=== PATIENT | female | born 1955 | race Caucasian/White ===

== ENCOUNTER 2024-03-14 14:40 | Emergency (ER) | payer OTHER, SELFPAY ==
[2024-03-14 14:48] VITALS: BP 168/79
[2024-03-14 15:05] LABS: % Basophils 0.8 % (0-2); % Eosinophils 0.8 % (0-6); % Immature Granulocytes 0.5 % (0-0.5); % Lymphocytes 14.2 % (20.5-51.1); % Monocytes 6.8 % (1.7-9.3); % Neutrophils 76.9 % (42.2-75.2); Absolute Basophils 0.1 10^3/uL (0-0.2); Absolute Eosinophils 0.1 10^3/uL (0-0.7); Absolute Lymphocytes 1.2 10^3/uL (1.2-3.4); Absolute Monocytes 0.6 10^3/uL (0.1-0.6); Absolute Neutrophils 6.7 10^3/uL (1.4-6.5); Hematocrit 36.2 % (37.0-47.0); Hemoglobin 12.4 g/dL (12.0-16.0); Mean Corp Hgb Conc. 34.3 g/dL (33.0-37.0); Mean Corpuscular Hgb 32.9 pg (27.0-31.0); Mean Platelet Volume 9.2 fL (7.4-10.4); Nucleated Red Blood Cells % 0 %; Platelet Count 264 10^3/uL (130-400); Red Blood Cell Count 3.77 10^6/uL (4.20-5.40); Red Cell Dist. Width 12.1 % (11.5-14.5); White Blood Cell Count 8.7 10^3/uL (4.8-10.8)
[2024-03-14 15:29] LABS: Troponin I < 0.012 ng/ml
[2024-03-14 15:43] LABS: ALT (SGPT) 36 U/L (0-35); AST (SGOT) 28 U/L (14-36); Albumin 4.6 g/dl (3.5-5.0); Alkaline Phosphatase 49 U/L (38-126); Blood Urea Nitrogen 25 mg/dl (7-17); Calcium 9.6 mg/dl (8.4-10.2); Carbon Dioxide 27 mmol/L (22-30); Chloride 98 mmol/L (98-107); Glucose 210 mg/dl (70-99); Potassium 4.5 mmol/L (3.5-5.1); Sodium 135 mmol/L (135-145); Total Bilirubin 0.2 mg/dl (0.2-1.3); Total Protein 6.8 g/dl (6.3-8.2); eGFR 40.22
[2024-03-14 15:48] LABS: TSH Reflex To Free T4 4.35 uIU/ml (0.47-4.68)
[2024-03-14 20:06] VITALS: BP 148/72
--- NOTE | 2024-03-14 20:21 | ED.GENMED ---
History of Present Illness
General
Chief Complaint: Heart Rate Problem
Time Seen by Provider: 03/14/24 19:36
History of Present Illness
History of Present Illness:
69-year-old female with prior history of a flutter presenting for palpitations. Patient notes in the past few days she has been noticing that her heart rate has been elevated on her watch, and has been feeling some palpitations. She has noticed
that her heart rate has been going up and down. Does report that she has had a chest cold, which is overall improving. Denies any chest pain. Denies any difficulty breathing. She is currently on diltiazem, previously had an ablation for flutter.
Denies dizziness or weakness. Denies fever. Denies additional acute medical complaints
Past History
Past History
ED Past Medical History: None
ED Past Surgical History: None
Social History
Tobacco: Non-smoker
Alcohol: Other
Living: with family
Phy Exam
Physical Exam
Physical Exam:
General: Well-appearing, no clinical signs of dehydration, nontoxic and in no acute distress
HEENT: protecting airway
Neck: appears supple
CV: Normal heart rate, regular rhythm
Resp: No accessory muscle use, no increased work of breathing, lungs clear to auscultation bilaterally
Abd: No distention
Extremities: No deformities, no swelling
Neuro: alert, no focal neurologic deficit
: deferred
Rectal: deferred
Psych: Normal affect
Skin: Intact
Course
Orders/Labs/Results
Orders:
Orders
03/14/24 14:41
Electrocardiogram (*1) Urgent
Reason for Study: Palpitations
EKG- Treatment ONCE
03/14/24 14:55
Complete Blood Count/With Diff Urgent
Comprehensive Metabolic Panel Urgent
TSH Reflex To Free T4 Urgent
Troponin I Urgent
03/14/24 20:06
Electrocardiogram (*1) Urgent
Reason for Study: Palpitations
EKG- Treatment ONCE
Abnormal Lab Results
03/14/24
14:55
RBC 3.77 L 10^6/uL
(4.20-5.40)
Hct 36.2 L %
(37.0-47.0)
MCH 32.9 H pg
(27.0-31.0)
Absolute Neuts (auto) 6.7 H 10^3/uL
(1.4-6.5)
Neutrophils % 76.9 H %
(42.2-75.2)
Lymphocytes % 14.2 L %
(20.5-51.1)
BUN 25 H mg/dl
(7-17)
Creatinine 1.4 H mg/dL
(0.6-1.0)
Glucose 210 H mg/dl
(70-99)
ALT 36 H U/L
(0-35)
03/14/24 14:55
03/14/24 14:55
Vital Signs
Initial and Last Documented VS:
Initial Vital Signs
Temp Pulse Resp BP Pulse Ox
97.9 F 91 16 168/79 99
03/14/24 14:48 03/14/24 14:48 03/14/24 14:48 03/14/24 14:48 03/14/24 14:48
Last Documented Vital Signs
Temp Pulse Resp BP Pulse Ox
97.9 F 85 16 148/72 97
03/14/24 14:48 03/14/24 20:45 03/14/24 20:45 03/14/24 20:06 03/14/24 20:45
MDM/Problems Addressed
MDM/Problems Addressed:
69-year-old female with prior history of a flutter status post ablation presenting for palpitations. Vital signs are normal
On exam patient is well-appearing, no acute distress or discomfort. EKG obtained on arrival, sinus rhythm with PACs. Patient is not currently in A-fib or a flutter. Suspect the patient may be feeling PACs versus going in and out of A-fib at home.
Patient had screening laboratory analysis prior to my assessment, unremarkable. She is currently asymptomatic. No present concern for ACS. No dyspnea or concern for PE. Will repeat EKG and ambulate
20:45 - Repeat EKG again sinus rhythm. Patient ambulated without any significant tachycardia. At this time feel that she is stable for discharge with outpatient follow-up with her quality control head for potential Holter monitoring. Return precautions
discussed and patient verbalized understanding
*EKG
Interpreted by ED Provider?: Yes
EKG Intrepretation Date: 03/14/24
EKG Intrepretation Time: 20:22
Interpretation: normal
Comparison EKG: no changes
Heart Rate: 97
Rate: normal
Rhythm: sinus and PAC's
[place]: normal axis
Interval: normal interval
QRS Pattern: right bundle branch block
Ischemia: no ischemia
*Critical Care Note
Total Time (30-74mins, 75-104mins- exclusive of procedures): Not Applicable
ED Attending Note
-
Portions of this chart may have been created with voice recognition software.� Occasional wrong word or��sound alike� substitutions may have occurred due to the inherent limitations of voice recognition software.
Discharge Plan
Departure
Patient Disposition: Home (Routine Discharge)
Date of Disposition: 03/14/24
Time of Disposition: 20:47
Patient with high blood pressure during this ER visit?: No
Condition: Good
Discharge Problem:
Heart palpitations
Instructions: Palpitations (DC)
Prescriptions:
No Action
atorvastatin 20 MG tablet
20 mg PO DAILY
spironolactone 25 MG tablet
25 mg PO DAILY
levothyroxine 88 MCG tablet
44 mcg PO SANDY
Patient Comments:
PT TAKES HS
levothyroxine 88 MCG tablet
88 mcg PO MOTUWETHFRSA
Patient Comments:
PT TAKES HS
cranberry 400 MG capsule
400 mg PO DAILY
magnesium 250 MG tablet
250 mg PO DAILY
albuterol sulfate 1 PUFF HFA aerosol inhaler
2 puff inhalation R [id number] PRN (Reason: sob)
multivitamin with folic acid [Tab-A-Vicky] 1 TABLET tablet
1 tab PO DAILY
apixaban [Eliquis] 5 MG tablet
5 mg PO BID Qty: 60 0RF
diltiazem HCl [Cardizem] 120 MG tablet
120 mg PO DAILY Qty: 30 0RF
Activity Restrictions/Additional Instructions:
You were seen in the emergency department for palpitations
You were found to have a normal heart rate and EKG. Please follow-up with your quality control head
Please follow-up closely with your primary care physician.
Return to the emergency department for any worsening of your symptoms, or any development of chest pain, difficulty breathing, abdominal pain with persistent vomiting and inability to tolerate food or liquid by mouth (concern for dehydration),
weakness, headache or confusion, fever greater than 100.4, or any additional symptoms that are concerning to you.
Thank you for choosing [facility].
Interventions
Interventions:
*Risk Screen - Suicide Last Done: 03/14/24 20:17
*General Assessment Last Done: 03/14/24 20:17
*Neglect/Abuse Screening Last Done: 03/14/24 20:17
ED- Fall Risk Assessment Last Done: 03/14/24 21:17
*Nursing Disposition Last Done: 03/14/24 21:17
ED- Cardiac Assessment Last Done: 03/14/24 20:17
ED- Pulmonary Assessment Last Done: 03/14/24 20:17
Discharge Date and Time
Discharge Date/Time: 03/14/24 21:17
Print Language: [place]
== END 2024-03-14 21:17 | disposition home or self-care (01) ==
LOC: EMR 14:40
PROVIDERS: Emergency Medicine; EMERGENCY PHYSICIAN Student in an Organized Health Care Education/Training Program
DX: R00.2 Palpitations (principal)
CPT/HCPCS: 99284; 80053; 84443; 84484; 85025; 93005